=== PATIENT | male | born 1980 | race Caucasian/White ===

== ENCOUNTER 2020-08-29 17:19 | Emergency (ER) | payer OTHER ==
[~2020-08-29] VITALS: Ht 175.3 cm; Wt 84.1 kg
[2020-08-29 22:55] VITALS: BP_DIAS 78
[2020-08-30 00:07] VITALS: BP_SYST 156
== END 2020-08-30 00:17 | disposition home or self-care (01) ==
LOC: M ED 17:19
DX: M65.811 Other synovitis and tenosynovitis, right shoulder (principal)

== ENCOUNTER → 2020-10-03 | Outpatient (CLI) | payer OTHER | LOC: M LABSMTC 13:11 | PROVIDERS: ATTEND Family Medicine | DX: Z20.828 Contact with and (suspected) exposure to other viral communicable diseases (principal); Z11.59 Encounter for screening for other viral diseases | CPT/HCPCS: C9803; U0003 ==